=== PATIENT | male | born 2000 | race Caucasian/White ===

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

== ENCOUNTER 2019-08-04 21:00 | Emergency (ER) | payer MEDICAID, OTHER ==
[2019-08-04 21:27] VITALS: BP 146/82; PULSE 71
--- NOTE | 2019-08-04 21:40 | EDM.PDOC ---
ED HPI GENERAL MEDICAL PROBLEM - General Chief Complaint: Upper Extremity Injury/Pain Stated Complaint: CUT LEFT FINGER Time Seen by Provider: 08/04/19 21:30 Source of Information: Reports: Patient History Limitations: Reports: No Limitations - History of Present Illness INITIAL COMMENTS - FREE TEXT/NARRATIVE: 19-year-old male with a laceration to the pulp of the index finger in the left hand. It occurred yesterday, he bandaged it well and put pressure on it. He tried to work today but it was too tender and after he got home he took the bandages off it started bleeding again so he came in to be seen. No other injury, his Tdap is current. Onset: Sudden Duration: Hour(s): (24 hours ago) Location: Reports: Upper Extremity, Left Associated Symptoms: Reports: No Other Symptoms Left Finger-Index Pain Score (Numeric/FACES): 6 - Related Data Allergies Allergy/AdvReac Type Severity Reaction Status Date / Time No Known Allergies Allergy Verified 08/04/19 21:52 Home Meds: Home Meds Albuterol Sulfate [Proair Hfa] 2 puff INH QID PRN 05/23/16 [History] Cetirizine HCl 10 mg PO DAILY 05/23/16 [History] Fluticasone Propionate [Flovent HFA] 2 puff INH DAILY 05/23/16 [History] Mometasone/Formoterol [Dulera 200-5 MCG] 1 puff INH DAILY 05/23/16 [History] Montelukast [Singulair] 10 mg PO DAILY 05/23/16 [History] Triamcinolone Acetonide [Triamcinolone Acetonide 0.1% Crm] 1 applic TOP BID PRN 05/23/16 [History] Naproxen 1 tab PO ASDIRECTED 12/07/17 [History] Past Medical History HEENT History: Reports: Allergic Rhinitis Respiratory History: Reports: Asthma Musculoskeletal History: Reports: Fracture Psychiatric History: Reports: Depression Dermatologic History: Reports: Other (See Below) Other Dermatologic History: has skin cream for when he has poison roya. - Past Surgical History HEENT Surgical History: Reports: Adenoidectomy, Tonsillectomy Social & Family History - Caffeine Use Caffeine Use: Reports: Soda Review of Systems - Review of Systems Review Of Systems: See Below Constitutional: Denies: Fever Respiratory: Reports: No Symptoms Cardiovascular: Reports: No Symptoms Neurological: Reports: No Symptoms ED EXAM, GENERAL - Physical Exam Exam: See Below Exam Limited By: No Limitations General Appearance: Alert, No Apparent Distress, Anxious Respiratory/Chest: No Respiratory Distress Extremities: Other (Exam is otherwise limited to the left hand. The patient has a 1 cm x 0.75 cm laceration evulsion of a piece of pulp from the index finger. After the bandages were removed it did start bleeding again.) Neurological: Alert, Oriented Psychiatric: Anxious Course - Vital Signs Last Recorded V/S: Last Vital Signs Temp 98.7 F 08/04/19 21:51 Pulse 71 08/04/19 21:51 Resp 16 08/04/19 21:51 BP 146/82 H 08/04/19 21:51 Pulse Ox 99 08/04/19 21:51 - Orders/Labs/Meds Meds: Medications Discontinued Medications Generic Name Dose Route Start Last Admin Trade Name Freq PRN Reason Stop Dose Admin Bacitracin 1 dose 08/04/19 21:41 08/04/19 22:08 Bacitracin Oint 1 Gm TOP 08/04/19 21:42 1 dose ONETIME ONE Administration - Re-Assessments/Exams Free Text/Narrative Re-Assessment/Exam: 08/04/19 21:54 A small piece of Heliostat was cut, the wound was covered with a small drop of bacitracin and the Heliostat was placed over the wound and then dressed with nonstick stick dressing and wrapped with Coban. He is to leave this on until tomorrow, then he can redress the wound and if it still wants to bleed he can reapply small pieces a Heliostat. He was also given a foam aluminum splint to wear as needed as it is healing to avoid re-traumatizing the injury. This was not applied at this time. Departure - Departure Time of Disposition: 22:14 Disposition: Home, Self-Care 01 Clinical Impression: Laceration of index finger Qualifiers: Encounter type: initial encounter Damage to nail status: without damage Foreign body presence: without foreign body Laterality: left Qualified Code(s): S61.211A - Laceration without foreign body of left index finger without damage to nail, initial encounter - Discharge Information Instructions: Laceration Care, Adult Referrals: PCP,None [Primary Care Provider] - Forms: ED Department Discharge Care Plan Goals: Keep wound covered and clean while healing, and use splint for protection when able. Recheck in 2 to 3 days if not improving satisfactorily. Sepsis Event Note (ED) - Focused Exam Vital Signs: Vital Signs Temp Pulse Resp BP Pulse Ox 08/04/19 21:51 98.7 F 71 16 146/82 H 99 08/04/19 21:25 98.7 F 71 16 146/82 H 99
[2019-08-04] MEDS ORDERED: Bacitracin Oint 1 GM U/D Packet TOP ONE (21:41)
== END 2019-08-04 22:14 | disposition home or self-care (01) ==
LOC: JP.ED 21:00
DX: S61.211A Laceration without foreign body of left index finger without damage to nail, initial encounter (principal); J45.909 Unspecified asthma, uncomplicated; Z79.899 Other long term (current) drug therapy
CPT/HCPCS: 99282

== ENCOUNTER 2024-07-13 22:09 | Emergency (ER) | payer SELFPAY ==
[2024-07-13 22:19] VITALS: BP 140/84; PULSE 99
== END 2024-07-13 23:08 | disposition home or self-care (01) ==
LOC: JP.ED 22:09
DX: S93.402A Sprain of unspecified ligament of left ankle, initial encounter (principal); F17.210 Nicotine dependence, cigarettes, uncomplicated; X50.1XXA Overexertion from prolonged static or awkward postures, initial encounter; Y93.89 Activity, other specified
CPT/HCPCS: 73610-LT; 99283

== ENCOUNTER 2024-11-20 13:08 | Emergency (ER) | payer BC, OTHER ==
[2024-11-20] MEDS: Diphtheria,Pertussis(Acell),Tetanus Vaccine 0.5 ML Syringe IM ONE (14:15)
[2024-11-20 14:16] VITALS: BP 122/80; PULSE 78
== END 2024-11-20 14:27 | disposition home or self-care (01) ==
LOC: JP.ED 13:08
DX: T25.221A Burn of second degree of right foot, initial encounter (principal); Z23 Encounter for immunization; X19.XXXA Contact with other heat and hot substances, initial encounter; Y93.89 Activity, other specified; Y99.0 Civilian activity done for income or pay
CPT/HCPCS: 16020; 90471; 90715; 99283; A9270